=== PATIENT | male | born 1945 | race Caucasian/White ===

== ENCOUNTER 2022-11-21 10:59 | Outpatient (CLI) | payer MEDICARE | END 2022-11-21 11:00 | disposition home or self-care (01) | LOC: RAD-FRANK 10:59 | PROVIDERS: ATTEND Nurse Practitioner Family | DX: M25.561 Pain in right knee (principal); M17.11 Unilateral primary osteoarthritis, right knee ==

== ENCOUNTER 2023-02-24 09:08 | Outpatient (CLI) | payer MEDICARE | END 2023-02-24 09:09 | disposition home or self-care (01) | LOC: RAD-FRANK 09:08 | PROVIDERS: ATTEND Nurse Practitioner Family | DX: M25.512 Pain in left shoulder (principal); M19.012 Primary osteoarthritis, left shoulder ==